=== PATIENT | male | born 1965 | race Caucasian/White ===

== ENCOUNTER 2021-02-15 11:15 | Outpatient (CLI) | payer BC, SELFPAY | END 2021-02-15 11:16 | disposition home or self-care (01) | LOC: ANHCOVIDVC 11:15 | PROVIDERS: PCP Family Medicine | DX: Z23 Encounter for immunization (principal) | CPT/HCPCS: 0001A; 91300 ==

== ENCOUNTER 2021-03-08 11:10 | Outpatient (CLI) | payer BC, SELFPAY | END 2021-03-08 11:11 | disposition home or self-care (01) | LOC: ANHCOVIDVC 11:10 | PROVIDERS: PCP Family Medicine | DX: Z23 Encounter for immunization (principal) | CPT/HCPCS: 0002A; 91300 ==

== ENCOUNTER 2023-01-11 16:40 | Emergency (ER) | payer BC, SELFPAY ==
[2023-01-11 16:47] VITALS: BP 132/83; PULSE 89; RESP 18; TEMP 36.9; O2SAT 98
[2023-01-11] MEDS: TETANUS,DIPHTHERIA,AC PERTUSSIS ADULT (0.5 ML) BOOSTRIX IM (17:15)
--- NOTE | 2023-01-11 17:23 | ED.WOUNDLAC ---
HPI - Wound/Laceration General Chief Complaint: Wound/Laceration Stated Complaint: lac on left thumb History of Present Illness HPI narrative: PATIENT PRESENTS WITH A LACERATION TO LEFT THUMB LATERAL SIDE. PATIENT SLICED ALONG OUTER THUMB NAIL ALMOST THROUGH AND THROUGH SIDE OF THUMB WITH BOX KNIFE WHILE AT HOME PLACING SIDING. BLEEDING CONTROLLED . THIS PATIENT STATES HE HAS NOT FEELING IN THUMB. Related Data Home Medications Medication Instructions Recorded Confirmed atorvastatin 20 mg tablet 20 mg PO DIRECTED 01/11/23 01/11/23 lisinopril 10 mg tablet 10 mg PO DIRECTED 01/11/23 01/11/23 metformin 500 mg tablet 500 mg PO DIRECTED 01/11/23 01/11/23 omeprazole 10 mg capsule,delayed 10 mg PO DIRECTED 01/11/23 01/11/23 release simvastatin 20 mg tablet 20 mg PO DIRECTED 01/11/23 01/11/23 Allergies Allergy/AdvReac Type Severity Reaction Status Date / Time No Known Allergies Allergy Verified 01/11/23 16:47 Review of Systems Review of Systems: CONSTITUTIONAL: DENIES FEVER, CHILLS, OR SWEATS. EYES: DENIES VISUAL CHANGES, REDNESS, OR DISCHARGE. ENT: DENIES RHINORRHEA, CONGESTION, SORE THROAT, OR OTALGIA. CARDIOVASCULAR: DENIES CHEST PAIN, PALPITATIONS, OR EDEMA. RESPIRATORY: DENIES COUGH OR DYSPNEA. GASTROINTESTINAL: DENIES ABDOMINAL PAIN, NAUSEA, VOMITING, OR DIARRHEA. GENITOURINARY: DENIES DYSURIA OR HEMATURIA. SKIN: DENIES RASH OR ITCHING. LACERATION TO THUMB MUSCULOSKELETAL: DENIES BACK PAIN, JOINT PAIN, OR MYALGIA. NEUROLOGIC: DENIES HEADACHE, NUMBNESS, OR WEAKNESS. PSYCHIATRIC: DENIES ANXIETY OR DEPRESSION. Exam Narrative: GENERAL: WELL-APPEARING, WELL-NOURISHED, AND IN NO ACUTE DISTRESS. HEAD: NORMOCEPHALIC, ATRAUMATIC. EYES: PERRLA AND EOMI. ENT: NARES CLEAR, NO RHINORRHEA OR EPISTAXIS. MUCOUS MEMBRANES MOIST. NECK: SUPPLE. CHEST: CLEAR TO AUSCULTATION. NO RESPIRATORY DISTRESS. HEART: REGULAR RATE AND RHYTHM. NO MURMUR HEARD. NORMAL PERIPHERAL PULSES. ABDOMEN: SOFT, NONTENDER, NONDISTENDED, NORMAL ACTIVE BOWEL SOUNDS. EXTREMITIES: NORMAL RANGE OF MOTION. NO EDEMA. hand exam see laceration procedure for description. patient does not have feeling to radial side of thumb can make a fist and can do the 'ok sign able to touch each finger to thumb. SKIN: WARM, DRY, NO RASH. NEURO: NO FOCAL DEFICITS. ALERT AND ORIENTED X3. ALEXANDER COMA SCALE EYE OPENING: SPONTANEOUS 4 ALEXANDER COMA SCALE MOTOR: OBEYS COMMANDS 6 ALEXANDER COMA SCALE VERBAL: ORIENTED 5 ALEXANDER COMA SCALE TOTAL 15 Skin: Other: LACERATION TO LEFT THUMB LACERATION FROM TIP OF THUMB NAIL RADIAL SIDE 3CM LOG THEN TURNS BACK 2CM LONG BASE OF THUMB LACERATION 2CM DOWN SIDE RADIAL SIDE OF THUMB BLEEDING CONTROLED PATIENT HAS NO FEELING IN RADIAL SIDE OF THUMB. Course Course Level of Care: Express Care Visit ENTRY DRIVER OPERATOR/PA Physician Supervision DR El long lines operator for plastic surgery discussed patient laceration and concern for nerve damage with Dr El recommends steri strip wound , TDAP, and place on keflex every 8 hours for 3 days and have patient call hsi office first thing Friday for appointment. Dr. El states he will be in the office at 730 am Friday. He will evaluate for nerve damage at that time. Vital Signs Vital signs: Vital Signs Temperature 36.9 C 01/11/23 16:47 Pulse Rate 89 01/11/23 16:47 Respiratory Rate 18 01/11/23 16:47 Blood Pressure 132/83 01/11/23 16:47 Pulse Oximetry 98 01/11/23 16:47 Oxygen Delivery Room Air 01/11/23 16:47 Temperature 36.9 C 01/11/23 16:47 Pulse Rate 89 01/11/23 16:47 Respiratory Rate 18 01/11/23 16:47 Blood Pressure 132/83 01/11/23 16:47 Pulse Oximetry 98 01/11/23 16:47 Oxygen Delivery Room Air 01/11/23 16:47 discussed transfer to emergency room for higher level of carel Patient does not wish to go to er , patient is agreeable to follow up with long lines operator Dr El friday as planned. discussed red flags and when to go to emergency room.
== END 2023-01-11 17:39 | disposition home or self-care (01) ==
PROVIDERS: Emergency Provider Nurse Practitioner Family; PCP Family Medicine
DX: S61.112A Laceration without foreign body of left thumb with damage to nail, initial encounter (principal); W26.0XXA Contact with knife, initial encounter; Z23 Encounter for immunization
CPT/HCPCS: 90471; 90715; 99213; G0463

== ENCOUNTER 2023-02-11 08:20 | Outpatient (CLI) | payer BC, SELFPAY ==
--- NOTE | 2023-02-11 11:00 | NEURO_ITS ---
Impression: Patient reports a history of bilateral hand numbness. # Moderate bilateral Carpal Tunnel Syndrome. # Normal needle/EMG exam. # Clinical correlation recommended. Motor Nerve Conduction Upper Extremities Median Nerve Conduction Velocity (m/sec) Terminal Latency (msec) Response Voltage(mV) Elbow-Wrist Wrist Elbow Wrist Right 47 8.6 2 2 Left 55 7.7 4 3 Ulnar Nerve Conduction Velocity (m/sec) Terminal Latency (msec) Response Voltage(mV) Above Elbow Below Elbow Wrist Above Elbow Below Elbow Wrist Right 56 51 2.3 6 6 7 Left 54 51 2.6 4 4 6 F-Wave Latency Median (ms) Ulnar (ms) Right 31.2 29.9 Left 31.2 30.0 Sensory Nerve Conduction Upper Extremities Median Nerve Stimulation Terminal Latency (msec) Wrist/Digit Response Voltage (uV) Wrist Right 7.4/8.0 23/28 Left 6.5/7.2 22/17 Ulnar Nerve Stimulation Terminal Latency (msec) Wrist/Digit Response Voltage (uV) Wrist Right 3.0 29 Left 2.8 15 Radial Nerve Terminal Latency (msec) Response Voltage(mV) Right 2.0 42 Left 2.3 11 Left Right Muscles Examined Fibrillation Fasciculation Scarcity Voltage Duration Left Right Left Right Left Right Left Right Left Right Deltoid Biceps X X Brachioradialis Triceps X X Pronator Teres X X Ext Indicis X X Ext Digitorum X X Abd Poll Brev X X 1st Dorsal Interosseus Paraspinals MTDD
== END 2023-02-11 08:21 | disposition home or self-care (01) ==
PROVIDERS: PCP Family Medicine; Visit Provider Family Medicine
DX: R20.2 Paresthesia of skin (principal); G56.03 Carpal tunnel syndrome, bilateral upper limbs
CPT/HCPCS: 95886; 95911

== ENCOUNTER 2025-01-25 00:52 | Day surgery (SDC) | payer BC, SELFPAY ==
[2025-01-11 14:22] VITALS: BMI 25.2
--- OUTSIDE RECORDS SUMMARY | 2025-01-25 00:56 | XMS_ITS | Encounter Summary ---
Author Organization [facility] Address [address] [place] [address] Care Team Providers Care Ribber Name Role Phone Unavailable Primary Care Provider Unavailabl e Encounter Details Date Type Department Care Team (Late st Contact Info) Description 12/21/2024 Lab Requisition [facility] - DermPath Lab [address] [address] [place] [id number] Muna Cruz PA [address] [place] [address] Social History Tobacco Use Types Packs/Day Years Used Date Smoking Tobacco: Never Assessed Sex and Gender Information Value Date Recorded Sex Assigned at Not on file Gender Identity Not on file Sexual Orientation Not on file documented as of this encounter Plan of Treatment Not on file documented as of this encounter Procedures Procedure Name Priority Date/Time Associated Diagnosis Comments DERMATOPATHOLOGY Routine 12/21/2024 9:55 AM CULTURE MANAGER documented in this encounter Results * DERMATOPATHOLOGY (12/21/2024 9:55 AM CULTURE MANAGER) Case Report Dermatopathology Report Case: [id number] Authorizing Provider: Muna Cruz PA Collected: 12/21/2024 09:55 AM Ordering Location: [facility] - Received: 12/22/2024 06:36 AM DermPath Lab Pathologist: Marquez Harp MD Specimen: Skin, left lower flank 5 4:00 PM CULTURE MANAGER DERMATOPATHOLOGY LABORATORY Final Diagnosis Specimen A. SKIN, left lower flank: PSORIASIS (L40.8) 5 4:00 PM CULTURE MANAGER DERMATOPATHOLOGY LABORATORY Clinical History Favor PSO vs nummular eczema vs other 4:00 PM [facility] DERMATOPATHOLOGY LABORATORY Gross Description Specimen A: Received is one formalin filled container labeled with the patient's name and designated left lower flank. The specimen consists of a punch biopsy measuring 4x4x5 mm. Jar 0. 4:00 PM [facility] DERMATOPATHOLOGY LABORATORY Microscopic Description Specimen A. SKIN, left lower flank: There is psoriasiform hyperplasia of the epidermis. The suprapapillary plates are thinned and the granular layer is diminished. The horny layer contains areas of compact, confluent parakeratosis with collections of neutrophils. In the papillary dermis there are dilated, tortuous loops and a superficial perivascular lymphocytic infiltrate. Grocott's methenamine silver (GMS) stain fails to highlight fungal elements in the available sections. IL36 highlights the upper third of the epidermis. 4:00 PM [facility] DERMATOPATHOLOGY LABORATORY Disclaimer An external and internal positive and negative controls are appropriate for the histochemical, immunohistochemical and immunofluorescence stain(s) in this case (if any), except where stated explicitly. The performance characteristics of the stain(s) cited in this report were developed and its performance characteristic determined by the Dermatopathology Laboratory at [facility], directed by Dr. Lorena Harp. These tests need not be, and therefore are not, approved by the [place] Food and Drug Administration. The tests are used for clinical purposes. Billing Codes Specimen Charges Stain Charges 38922 1 37296 61213 1 1 4:00 PM [facility] DERMATOPATHOLOGY LABORATORY Embedded Images 4:00 PM [facility] DERMATOPATHOLOGY LABORATORY Pathology/Cytolo gy TISSUE SPECIMEN FROM SKIN / Unknown 12/21/2024 9:55 AM CULTURE MANAGER 12/22/2024 6:36 AM CULTURE MANAGER [facility] - PATHOLOGY/CYTO LOGY ORDERABLES DERMATOPATHOLOGY LABORATORY [facility] - Department of Dermatology [address] [place] [address], [facility] [phone] documented in this encounter Visit Diagnoses Not on filedocumented in this encounter
--- OUTSIDE RECORDS SUMMARY | 2025-01-25 00:56 | XMS_ITS | Referral Summary ---
Author Organization [facility] Address [address] [place] [address] Care Team Providers Care Painter Spray Name Role Phone Sixto San MD Primary Care Provider [phone] [phone] Allergies No known active allergies Medications aspirin 81 mg tablet Take 81 mg by mouth daily. Active fluticasone (FLOVENT HFA) 110 mcg/actuation inhaler Inhale 1 puff. Rinse mouth with water after use to reduce aftertaste and incidence of candidiasis. Do not swallow. Active metFORMIN (GLUCOPHAGE) 500 mg tablet Take 500 mg by mouth daily. Active lisinopril (PRINIVIL,ZESTR IL) 10 mg tablet Take 10 mg by mouth daily. Active raNITIdine (ZANTAC) 300 mg tablet 8 Active simvastatin (ZOCOR) 20 mg tablet 8 Active Active Problems Problem Noted Date Diagnosed Date Radicular low back pain Rt L5 distribution 09/01 DDD (degenerative disc disea se), lumbar Rt L4-5 paracentral disc protrusion. 09/01/2018 Social History Tobacco Use Types Packs/Day Years Used Date Smoking Tobacco: Never Smokeless Tobacco: Never PHQ-2 Answer Date Recorded PHQ-2 Score 0 07/23/2019 Personal Safety Answer Date Recorded Have you ever been in or are you currently in a harmful physical or emotional relationship or is someone making you feel afraid or unsafe? 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 Gender Identity Not on file Sexual Orientation Not on file Last Filed Vital Signs Vital Sign Reading Time Taken Comments Blood Pressure 125/83 08/14/2024 7:00 AM CDT Pulse 74 08/14/2024 7:00 AM CDT Temperature 36.7 C (98.1 F) 08/14/2024 6:05 AM CDT Respiratory Rate 19 08/14/2024 6:45 AM CDT Oxygen Saturation 98% 08/14/2024 7:00 AM CDT Inhaled Oxygen Concentration - - Weight 79.4 kg (175 lb) 08/14/2024 6:05 AM CDT Height 177.8 cm (5' 10 ) 08/14/2024 6:05 AM CDT Body Mass Index 25.11 08/14/2024 6:05 AM CDT Plan of Treatment Not on file Insurance [employer] PPO [place] Care Teams Painter Spray Relationship Specialty Start Date End Date Sixto San MD PCP - General 09/01/18
--- OUTSIDE RECORDS SUMMARY | 2025-01-25 00:56 | XMS_ITS | Clinical Summary ---
Author Organization [facility] Address [address] [place] [address] Care Team Providers Care Circuit Recorder Name Role Phone Unavailable Primary Care Provider Unavailabl e Source Comments [facility],non-owned Affiliates and Associated Physician Practices is amultiple site organization consisting of ambulatory clinics and hospital sitesin [place], [place], [place] and [place]. This disclosure is being madepursuant to the Care Everywhere program and may not contain all information available regarding this patient. Last updated 18.[facility] Encounters Date Type Department Care Team Description 12/21/2024 Lab Requisition [facility] - DermPath Lab [address] [place] [phone] Muna Cruz PA from Last 3 Months Social History Tobacco Use Types Packs/Day Years Used Date Smoking Tobacco: Never Assessed Sex and Gender Information Value Date Recorded Sex Assigned at Not on file Gender Identity Not on file Sexual Orientation Not on file Plan of Treatment Health Maintenance Due Date Last Done Comments COLOGUARD (AGES 45-75) - COL ON CA SCREENING 1964 COLON MONITORING 1964 COLONOSCOPY - COLON CA SCREENING 1964 CT COLONOGRAPHY - COLON CA SCREENING 1964 Colorectal Cancer Screening 1964 FIT - COLON CA SCREENING 1964 FLEX SIG - COLON CA SCREENING 1964 LIPID TESTING 1964 HIV SCREENING 1979 HEPATITIS C SCREENING 11/08/1982 DTAP/TDAP/TD VACCINES (1 - Tdap) 1983 PNEUMOCOCCAL VACCINE 50+ (1 of 1 - PCV) 2014 ZOSTER VACCINE (1 of 2) 2014 COVID-19 VACCINE ( - 2023-2 5 season) 2024 INFLUENZA VACCINE (#1) 2024 DEPRESSION SCREENING 12/01/2024 Respiratory Syncytial Virus (RSV) Vaccine Pt: or over 60 yrs (1 - 1-dose 75+ series) 2039 HEPATITIS B VACCINE Aged Out No longe r eligible based on patient's age to complete this topic HIB VACCINE Aged Out No longer eligi ble based on patient's age to complete this topic HPV VACCINE Aged Out No longer eligi ble based on patient's age to complete this topic MENINGOCOCCAL (Group B) VACCINE Aged Out No longer eligible based on patient's age to complete this topic MENINGOCOCCAL VACCINE Aged Out No steven leandra eligible based on patient's age to complete this topic Procedures Procedure Name Priority Date/Time Associated Diagnosis Comments DERMATOPATHOLOGY Routine 12/21/2024 9:55 AM DIRECT SUPPORT STAFF MEMBER from Last 3 Months Results * DERMATOPATHOLOGY (12/21/2024 9:55 AM DIRECT SUPPORT STAFF MEMBER) Case Report Dermatopathology Report Case: [id number] Authorizing Provider: Muna Cruz PA Collected: 12/21/2024 09:55 AM Ordering Location: [facility] - Received: 12/22/2024 06:36 AM DermPath Lab Pathologist: Marquez Harp MD Specimen: Skin, left lower flank 4:00 PM [facility] DERMATOPATHOLOGY LABORATORY Final Diagnosis Specimen A. SKIN, left lower flank: PSORIASIS (L40.8) 4:00 PM [facility] DERMATOPATHOLOGY LABORATORY Clinical History Favor PSO vs nummular eczema vs other 4:00 PM [facility] DERMATOPATHOLOGY LABORATORY Gross Description Specimen A: Received is one formalin filled container labeled with the patient's name and designated left lower flank. The specimen consists of a punch biopsy measuring 4x4x5 mm. Jar 0. 4:00 PM [facility] DERMATOPATHOLOGY LABORATORY Microscopic Description Specimen A. [...] highlights the upper third of the epidermis. 5 4:00 PM [facility] DERMATOPATHOLOGY LABORATORY Disclaimer An external and internal positive and negative controls are appropriate for the histochemical, immunohistochemical and immunofluorescence stain(s) in this case (if any), except where stated explicitly. The performance characteristics of the stain(s) cited in this report were developed and its performance characteristic determined by the Dermatopathology Laboratory at [facility], directed by Dr. Lorena Harp. These tests need not be, and therefore are not, approved by the [place] Food and Drug Administration. The tests are used for clinical purposes. Billing Codes Specimen Charges Stain Charges 11497 1 40832 40589 1 1 5 4:00 PM [facility] DERMATOPATHOLOGY LABORATORY Embedded Images 4:00 PM [facility] DERMATOPATHOLOGY LABORATORY Pathology/Cytolo gy TISSUE SPECIMEN FROM SKIN / Unknown 12/21/2024 9:55 AM DIRECT SUPPORT STAFF MEMBER 12/22/2024 6:36 AM DIRECT SUPPORT STAFF MEMBER [facility] - PATHOLOGY/CYTO LOGY ORDERABLES DERMATOPATHOLOGY LABORATORY [facility] - Department of Dermatology [address] [phone] from Last 3 Months Julio Don Personal/Famil y Self 1965
--- OUTSIDE RECORDS SUMMARY | 2025-01-25 00:56 | XMS_ITS | Referral Summary ---
Author Organization [facility] Address [address] [facility] [place] [address] Care Team Providers Care Gym Attendant Name Role Phone Unavailable Primary Care Provider Unavailabl e Source Comments [facility],non-owned Affiliates and Associated Physician Practices is amultiple site organization consisting of ambulatory clinics and hospital sitesin [place], [place], [place] and [place]. This disclosure is being madepursuant to the Care Everywhere program and may not contain all information available regarding this patient. Last updated 18.[facility] Encounters Date Type Department Care Team Description 12/21/2024 Lab Requisition [facility] - DermPath Lab [address] [place] [phone] Muna Cruz PA from Last 3 Months Social History Tobacco Use Types Packs/Day Years Used Date Smoking Tobacco: Never Assessed Sex and Gender Information Value Date Recorded Sex Assigned at Not on file Gender Identity Not on file Sexual Orientation Not on file Plan of Treatment Not on file Procedures Procedure Name Priority Date/Time Associated Diagnosis Comments DERMATOPATHOLOGY Routine 12/21/2024 9:55 AM GRIT BLASTER from Last 3 Months Results * DERMATOPATHOLOGY (12/21/2024 9:55 AM GRIT BLASTER) Case Report Dermatopathology Report Case: [id number] Authorizing Provider: Muna Cruz PA Collected: 12/21/2024 09:55 AM Ordering Location: [facility] Physician [facility] - Received: 12/22/2024 06:36 AM DermPath Lab Pathologist: Marquez Harp MD Specimen: Skin, left lower flank 4:00 PM GRIT BLASTER DERMATOPATHOLOGY LABORATORY Final Diagnosis Specimen A. SKIN, left lower flank: PSORIASIS (L40.8) 5 4:00 PM GRIT BLASTER DERMATOPATHOLOGY LABORATORY Clinical History Favor PSO vs nummular eczema vs other 4:00 PM [facility] DERMATOPATHOLOGY LABORATORY Gross Description Specimen A: Received is one formalin filled container labeled with the patient's name and designated left lower flank. The specimen consists of a punch biopsy measuring 4x4x5 mm. Jar 0. 4:00 PM [facility] DERMATOPATHOLOGY LABORATORY Microscopic Description Specimen A. SKIN, [...] upper third of the epidermis. 4:00 PM [facility] DERMATOPATHOLOGY LABORATORY Disclaimer An external and internal positive and negative controls are appropriate for the histochemical, immunohistochemical and immunofluorescence stain(s) in this case (if any), except where stated explicitly. The performance characteristics of the stain(s) cited in this report were developed and its performance characteristic determined by the Dermatopathology Laboratory at [facility], directed by Dr. Lorena Harp. These tests need not be, and therefore are not, approved by the [place] Food and Drug Administration. The tests are used for clinical purposes. Billing Codes Specimen Charges Stain Charges 37536 1 51802 97058 1 1 4:00 PM [facility] DERMATOPATHOLOGY LABORATORY Embedded Images 4:00 PM [facility] DERMATOPATHOLOGY LABORATORY Pathology/Cytolo gy TISSUE SPECIMEN FROM SKIN / Unknown 12/21/2024 9:55 AM GRIT BLASTER 12/22/2024 6:36 AM [facility] - PATHOLOGY/CYTO LOGY ORDERABLES DERMATOPATHOLOGY LABORATORY [facility] - Department of Dermatology [address] [phone] from Last 3 Months Julio Don Personal/Famil y Self 1965
--- OUTSIDE RECORDS SUMMARY | 2025-01-25 00:56 | XMS_ITS | Clinical Summary ---
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 Gender Identity Not on file Sexual Orientation Not on file Plan of Treatment Health Maintenance Due Date Last Done Comments Hepatitis C Virus (HCV) Screening 1965 TdaP Immunization 1964 Colonoscopy 2009 Colorectal Cancer Screening 2009 Cologuard 2014 Immunochemical Fecal Occult Blood 2014 Pneumococcal Immunization (5 0+ years) (1 of 1 - PCV) 2014 Zoster Immunization (1 of 2) 2014 PSA Discussion 2019 Influenza Immunization (#1) 2024 SARS-COV-2 Immunization ( season) 2024 Respiratory Syncytial Virus (RSV) Immunization (Adult) (1 - 1-dose 75+ series) 2039 Hepatitis B Immunization Aged Out No longer eligible based on patient's age to complete this topic Meningococcal Immunization (ACWY) Aged Out No longer eligible based on patient's age to complete this topic Pneumococcal Immunization Combined Aged Out No longer eligible based on patient's age to complete this topic Rotavirus Immunization Aged Out No lo nger eligible based on patient's age to complete this topic
--- OUTSIDE RECORDS SUMMARY | 2025-01-25 00:56 | XMS_ITS | Clinical Summary ---
Author Organization [facility] Address [address] [place] [address] Care Team Providers Care Transportation Engineer Name Role Phone Sixto San MD Primary Care Provider [phone] [phone] Allergies No known active allergies Medications aspirin [...] lumbar Rt L4-5 paracentral disc protrusion. 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 Gender Identity Not on file Sexual Orientation Not on file Obstetrics History Last Filed Vital Signs Vital Sign Reading [...] 08/14/2024 6:05 AM CDT Plan of Treatment Health Maintenance Due Date Last Done Comments Colon Cancer Screening-Colonoscopy 1964 Hepatitis C Screening 1964 Prostate Cancer Screening-PSA 1964 Hepatitis B Screening 1982 Regular Well Visit/Exam 18-64 1982 Zoster Vaccine (1 of 2) 2014 Depression Screening 09/01/2019 09/01/2018, 09/01/2018 Influenza Vaccine (#1) 2024 09/12/2023 DTaP/Tdap/Td Vaccine (2 - Td or Tdap) 01/11/2033 01/11/2023 Pneumococcal vaccine <65 Aged Out No longer eligible based on patient's age to complete this topic Insurance CHOICE [facility] PPO [place] Care Teams Transportation Engineer Relationship Specialty Start Date End Date Sixto San MD [facility] - General 09/01/18
--- OUTSIDE RECORDS SUMMARY | 2025-01-25 00:56 | XMS_ITS | Patient Health Summary ---
Author Organization [facility] Address [address] [place] [address] Care Team Providers Care Tile Fitter Name Role Phone Unavailable Primary Care Provider Unavailabl e Note from [facility],non-owned Affiliates and Associated Physician Practices is amultiple site organization consisting of ambulatory clinics and hospital sitesin [place], [place], [place] and [place]. This disclosure is being madepursuant to the Care Everywhere program and may not contain all information available regarding this patient. Last updated 18.[facility] Social History Tobacco Use Types Packs/Day Years Used Date Smoking Tobacco: Never Assessed Sex and Gender Information Value Date Recorded Sex Assigned at Not on file Gender Identity Not on file Sexual Orientation Not on file Procedures * DERMATOPATHOLOGY(Performed 12/21/2024) Results * DERMATOPATHOLOGY (12/21/2024 9:55 AM REORDERING CLERK) Case Report Dermatopathology Report Case: [id number] Authorizing Provider: Muna Cruz PA Collected: 12/21/2024 09:55 AM Ordering Location: [facility] - Received: 12/22/2024 06:36 AM DermPath Lab Pathologist: Marquez Harp MD Specimen: Skin, left lower flank 4:00 PM [facility] Final Diagnosis Specimen A. SKIN, left lower flank: PSORIASIS (L40.8) 4:00 PM [facility] Clinical History Favor PSO vs nummular eczema vs other 4:00 PM [facility] Gross Description Specimen A: Received is one formalin filled container labeled with the patient's name and designated left lower flank. The specimen consists of a punch biopsy measuring 4x4x5 mm. Jar 0. 4:00 PM [facility] Microscopic Description Specimen A. [...] third of the epidermis. 5 4:00 PM [facility] Disclaimer An external and internal positive and negative controls are appropriate for the histochemical, immunohistochemical and immunofluorescence stain(s) in this case (if any), except where stated explicitly. The performance characteristics of the stain(s) cited in this report were developed and its performance characteristic determined by the Dermatopathology Laboratory at [facility], directed by Dr. Lorena Harp. These tests need not be, and therefore are not, approved by the [place] Food and Drug Administration. The tests are used for clinical purposes. Billing Codes Specimen Charges Stain Charges 47501 1 [id number] 1 1 5 4:00 PM [facility] Embedded Images 4:00 PM [facility] Pathology/Cytolo gy TISSUE SPECIMEN FROM SKIN / Unknown 12/21/2024 9:55 AM REORDERING CLERK 12/22/2024 6:36 AM REORDERING CLERK [facility] - PATHOLOGY/[facility] DERMATOPATHOLOGY LABORATORY [facility] - Department of Dermatology [address], [address] [phone]
[2025-01-25 07:45] VITALS: BP 125/84; PULSE 74; RESP 18; TEMP 36.1; O2SAT 99; BMI 25.4
[2025-01-25] MEDS: LACTATED RINGERS 1,000 ML 150 ML IV CONT (07:55)
[2025-01-25 07:58] LABS: Glucose Point of Care 164 mg/dl (65-105)
--- NOTE | 2025-01-25 08:03 | P.PNAN_ITS ---
Anes - Initial Pre Proc Eval Procedure: Operation Date: 01/25/25 09:00 Proposed Procedures p Screening Colonoscopy - Bruce Banks MD Date/Time: 01/25/25 08:03 Surgeon: Bruce Banks MD Pre Op Diagnosis: screening colon Patient Data Age: 59 Gender: M Height: 1.78 m Weight: 80.5 kg Last Vital Signs Temp 36.1 C L 01/25/25 07:45 Pulse 74 01/25/25 07:45 Resp 18 01/25/25 07:45 BP 125/84 01/25/25 07:45 Pulse Ox 99 01/25/25 07:45 O2 Del Method Room Air 01/25/25 07:45 Allergies Allergy/AdvReac Type Severity Reaction Status Date / Time amoxicillin Allergy Intermediate Rash Verified 01/25/25 07:41 cephalexin Allergy Intermediate Rash Uncoded 01/11/25 14:20 Home Medications ?Medication ?Instructions ?Recorded ?Confirmed ?Type aspirin 81 mg tablet,delayed 81 mg PO DAILY 11/04/19 01/25/25 History release (Adult Low Dose Aspirin) sildenafil 100 mg tablet (Viagra) 100 mg PO DAILY PRN sexual 03/21/22 01/11/25 Rx activity #10 tabs atorvastatin 20 mg tablet 20 mg PO DIRECTED 01/11/23 01/25/25 History lisinopril 10 mg tablet 10 mg PO DIRECTED 01/11/23 01/25/25 History metformin 500 mg tablet 500 mg PO DIRECTED 01/11/23 01/25/25 History omeprazole 10 mg capsule,delayed 10 mg PO DAILY #90 caps 10/06/24 01/25/25 Rx release lisinopril 10 mg tablet See Rx Instructions .Route 10/20/24 01/25/25 Rx .COMPLEX #90 tabs metformin 500 mg tablet See Rx Instructions .Route 10/20/24 Rx .COMPLEX #90 tabs nystatin-triamcinolone 100,000 1 applic topical TID #60 grams 11/08/24 01/11/25 Rx unit/g-0.1 % topical cream atorvastatin 20 mg tablet 20 mg PO QHS #90 tabs 12/13/24 Rx Laboratory Tests 01/25/25 07:50 POC Capillary Glucose 164 H mg/dl (65-105) Patient hx anesthesia problems: none Family hx anesthesia problems: none Results Review: All pre-operative results and documents have been reviewed as part of the pre- operative evaluation. [facility] Past Medical History Medical History (Updated 01/25/25 @ 08:03 by Paras Mckeon DO) Diabetes type 2, controlled Benign essential HTN Mixed hyperlipidemia Family History Family History Mother Family history of elevated blood lipids Diabetes mellitus Acute myocardial infarction Sibling Diabetes mellitus Family history of elevated blood lipids Grandparent Family history of Parkinson's disease Social History Social History (Updated 01/25/25 @ 08:10 by Paras Mckeon DO) Smoking status: Never smoker Alcohol intake: current Alcohol use details: 3-4 beers/dAy Substance use type: marijuana Other substance usage details: daily Lack of Transportation: No Lack of Food: Never True Current Housing: I Have Housing Concerned About Future Housing: No Difficulty Paying Gas/Electric Bills: No Difficulty Paying for Meds: No Currently Unemployed: No Education: Bachelor's Degree Difficulty w/ Childcare or Family Care: No Anes - Eval Final PreProcedure Day of Procedure 01/25/25 08:03 Patient weight: overweight Heart: regular rate and rhythm Lungs: clear to auscultation Airway: Mallampati scale class II Neurological: alert and oriented Last oral intake: >/= 8 hours ASA classification: III Emergent: no Anesthetic plan: proceed Anesthesia type and monitoring: general GIVS and standard monitoring Results Review: All pre-operative results and documents have been reviewed as part of the pre- operative evaluation. Informed Consent: The patient's anesthetic plan and its attendant risks and benefits were discussed with the patient/family/POA. Questions were solicited and answers provided to the satisfaction of the patient/family/POA.
--- NOTE | 2025-01-25 08:37 | PM.HPGS ---
History of Present Illness History of Present Illness Consent: Risks, benefits, and alternatives have been discussed and questions answered. Patient agrees to proceed with procedure. Chief complaint: screening colon Narrative: Julio Don is a 59 year old male here for first screening colonoscopy Review of Systems Review of Systems: All systems reviewed & are unremarkable except as noted in HPI and below PMFSH Past Medical History Medical History (Updated 01/25/25 @ 08:03 by Paras Mckeon DO) Diabetes type 2, controlled Benign essential HTN Mixed hyperlipidemia Family History Family History Mother Family history of elevated blood lipids Diabetes mellitus Acute myocardial infarction Sibling Diabetes mellitus Family history of elevated blood lipids Grandparent Family history of Parkinson's disease Social History Social History (Updated 01/25/25 @ 08:10 by Paras Mckeon DO) Smoking status: Never smoker Alcohol intake: current Alcohol use details: 3-4 beers/dAy Substance use type: marijuana Other substance usage details: daily Lack of Transportation: No Lack of Food: Never True Current Housing: I Have Housing Concerned About Future Housing: No Difficulty Paying Gas/Electric Bills: No Difficulty Paying for Meds: No Currently Unemployed: No Education: Bachelor's Degree Difficulty w/ Childcare or Family Care: No Meds Home Medications and Allergies Home Medications ?Medication ?Instructions ?Recorded ?Confirmed ?Type aspirin 81 mg tablet,delayed 81 mg PO DAILY 11/04/19 01/25/25 History release (Adult Low Dose Aspirin) sildenafil 100 mg tablet (Viagra) 100 mg PO DAILY PRN sexual 03/21/22 01/11/25 Rx activity #10 tabs atorvastatin 20 mg tablet 20 mg PO DIRECTED 01/11/23 01/25/25 History lisinopril 10 mg tablet 10 mg PO DIRECTED 01/11/23 01/25/25 History metformin 500 mg tablet 500 mg PO DIRECTED 01/11/23 01/25/25 History omeprazole 10 mg capsule,delayed 10 mg PO DAILY #90 caps 10/06/24 01/25/25 Rx release lisinopril 10 mg tablet See Rx Instructions .Route 10/20/24 01/25/25 Rx .COMPLEX #90 tabs metformin 500 mg tablet See Rx Instructions .Route 10/20/24 Rx .COMPLEX #90 tabs nystatin-triamcinolone 100,000 1 applic topical TID #60 grams 11/08/24 01/11/25 Rx unit/g-0.1 % topical cream atorvastatin 20 mg tablet 20 mg PO QHS #90 tabs 12/13/24 Rx Allergies Allergy/AdvReac Type Severity Reaction Status Date / Time amoxicillin Allergy Intermediate Rash Verified 01/25/25 07:41 cephalexin Allergy Intermediate Rash Uncoded 01/11/25 14:20 Vital Signs Vital Signs - 24 hr 01/25/25 07:45 Temperature 97 F L Pulse Rate 74 Respiratory Rate 18 Blood Pressure 125/84 Pulse Oximetry 99 Oxygen Delivery Room Air Exam Const: General: comfortable and no acute distress HENMT: Face/Nose/Sinus: Normal nares present Eyes: General: appearance normal, both eyes and all related structures Neck: Neck: no JVD Resp: Auscultation: clear to auscultation bilaterally Cardio: Rate: regular rate Rhythm: regular rhythm GI: Inspection: non-distended GI Palp: Yes Soft to palpation Skin: General skin exam: normal color Neuro: General: gait normal Speech: normal speech Extrem: General: normal to inspection Psych: Mental Status: mental status grossly normal Assessment and Plan Assessment and plan (1) Colon cancer screening: Code(s): Z12.11 - Encounter for screening for malignant neoplasm of colon Status: Acute Assessment and Plan: colonoscopy
[2025-01-25 08:56] VITALS: BP 103/74; PULSE 79; RESP 20; O2SAT 96
[2025-01-25 09:06] VITALS: BP 105/75; PULSE 70; RESP 12; O2SAT 98
[2025-01-25 09:16] VITALS: BP 115/75; PULSE 64; RESP 11; O2SAT 98
== END 2025-01-25 09:31 | disposition home or self-care (01) ==
PROVIDERS: PCP Family Medicine; Visit Provider Internal Medicine Gastroenterology
PROC: 0DJD8ZZ Inspection of Lower Intestinal Tract, Via Natural or Artificial Opening Endoscopic (ICD-10-PCS; CPT 45378; principal; 2025-01-25 09:00)
DX: Z12.11 Encounter for screening for malignant neoplasm of colon (principal); D12.3 Benign neoplasm of transverse colon; K64.8 Other hemorrhoids; K57.30 Diverticulosis of large intestine without perforation or abscess without bleeding; K52.832 Lymphocytic colitis; E11.9 Type 2 diabetes mellitus without complications; I10 Essential (primary) hypertension; E78.5 Hyperlipidemia, unspecified; F12.90 Cannabis use, unspecified, uncomplicated; Z79.82 Long term (current) use of aspirin; Z79.84 Long term (current) use of oral hypoglycemic drugs; Z82.49 Family history of ischemic heart disease and other diseases of the circulatory system
CPT/HCPCS: 45385; 82948; 88305; J2003; J2704; J7120